=== PATIENT | female | born 1995 | race Two or more races ===

== ENCOUNTER 2017-09-28 17:57 | Emergency (ER) | payer OTHER, MEDICAID ==
--- NOTE | 2017-09-28 18:14 | EDPHY ---
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 Wyatt Mar, Neurocirujano y especialista de la columna, a fines de esta semana para gordy reeval[facility]acion [facility]. Dosificacion de Ibuprofeno: 600 mg cada 6 horas con comidas duarnte los siguientes 3 thakur solamente. Tomelo solo cuando se necesario para el dolor. Regrese a la clarissa de emergencia si empeora el dolor de abel, cualquier sensacion de debilidad o entumecimiento en nitish brazos o piernas, dolor de néstor , vomitos u otras preocupaciones serias. Referrals: Wyatt Mar MD [Medical Doctor] - As per Instructions Print Language: Hebrew
[2017-09-28 18:22] LABS: PLATELET COUNT 298 10^3/uL (150-400)
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
[2017-09-28 18:30] LABS: INR 0.93 (0.83-1.16); PROTIME(PATIENT) 12.7 SEC (12.0-15.0)
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
[2017-09-28 22:00] VITALS: BP 117/70
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
== END 2017-09-28 22:01 | disposition still patient (30) ==
DX: S16.1XXA Strain of muscle, fascia and tendon at neck level, initial encounter (principal); V48.5XXA Car driver injured in noncollision transport accident in traffic accident, initial encounter; Y92.410 Unspecified street and highway as the place of occurrence of the external cause; Y99.8 Other external cause status; Y93.89 Activity, other specified
CPT/HCPCS: 82947-QW; G0480